=== PATIENT | male | born 1965 | race Caucasian/White ===

== ENCOUNTER → 2020-01-30 08:56 | Outpatient (BNVA) | payer SELFPAY | PROVIDERS: Visit Provider Internal Medicine | DX: Z11.59 Encounter for screening for other viral diseases (principal) | CPT/HCPCS: 87635 ==

== ENCOUNTER 2020-02-02 06:56 | Day surgery (SDC) | payer OTHER, SELFPAY ==
[2020-01-29 12:44] VITALS: BMI 27.8
[2020-02-02 07:11] VITALS: BP 125/88; PULSE 56; RESP 18; TEMP 36.4; O2SAT 98; BMI 27.8
--- NOTE | 2020-02-02 07:49 | ANES.PREANE2 ---
Pre-Anesthetic Assessment Pre-Anesthetic Assessment: Height/Weight: Height 1.88 m Weight 98.43 kg Temp Pulse Resp BP Pulse Ox 97.6 F 56 L 18 125/88 98 02/02/20 07:11 02/02/20 07:11 02/02/20 07:11 02/02/20 07:11 02/02/20 07:11 Preop Diagnosis: screening Proposed Procedure: Operation Date: 02/02/20 07:55 Proposed Procedures p Colonoscopy screening 34304 Z12.11(Not Applicable) - Jose Aquino MD Familial anesthetic complications: None Was Beta Jefferson taken within 24 hours: N/A Last intake: Intake Last Liquid Date 02/01/20 Last Liquid Time 23:30 Last Solid Date 01/31/20 Last Solid Time 12:00 Social: Social History: No alcohol and No tobacco Exam: Pre-Anes Outpt Exam: alert, oriented x 3, clear to auscultation bilaterally and regular rate & rhythm Airway: Cervical ROM: WNL MP: 3 Dentition: Full Musc/skel: Musc/skel: Lower Back Pain Anesthetic Plan: ASA status: 1 Anesthesia: MAC Risk of > 500 ml blood loss (7ml/kg in children): No Data Anesthesia Cardiac Studies: No Data to Display
--- NOTE | 2020-02-02 08:10 | P.HP_ITS ---
Same Day Surgery H&P Indication for Procedure/HPI DATE OF PROCEDURE: February 02, 2020 CHIEF COMPLAINT/INDICATIONFOR SURGICAL PROCEDURE: history of colon polyps PREOP DIAGNOSIS: screening PLANNED PROCEDRUE: Operation Date: 02/02/20 07:55 Proposed Procedures p Colonoscopy screening 10097 Z12.11(Not Applicable) - Jose Aquino MD Medications/Allergies* Home Medications Medication Instructions Recorded Confirmed Type No Known Home Medications 01/21/20 01/29/20 History Allergies/Adverse Reactions Allergy/AdvReac Type Severity Reaction Status Date / Time No Known Allergies Allergy Verified 02/02/20 07:09 Pertinent Exam Findings alert, oriented x 3 and regular rate & rhythm Recommendations Surgery/Procedure today Coding Level of Care Code Acute Cigarette Tester for Abida Douglas
[2020-02-02 08:50] VITALS: BP 152/83; PULSE 60; RESP 16; TEMP 36.1; O2SAT 91
[2020-02-02 09:11] VITALS: BP 169/105; PULSE 61; RESP 18; O2SAT 92
== END 2020-02-02 09:17 | disposition home or self-care (01) ==
PROVIDERS: PCP Nurse Practitioner Family; Visit Provider Surgery
PROC: 0DJD8ZZ Inspection of Lower Intestinal Tract, Via Natural or Artificial Opening Endoscopic (ICD-10-PCS; CPT 45378; principal; 2020-02-02 07:55)
DX: Z12.11 Encounter for screening for malignant neoplasm of colon (principal); D12.4 Benign neoplasm of descending colon; D12.5 Benign neoplasm of sigmoid colon; K64.8 Other hemorrhoids; Z86.010 Personal history of colon polyps
CPT/HCPCS: 12345; 45385; 88305; J2704; J3010

== ENCOUNTER 2024-01-24 08:41 | Outpatient (CLI) | payer OTHER, SELFPAY ==
--- NOTE | 2024-01-24 08:44 | CT_ITS ---
WS: [id number] LDCT LUNG CANCER SCREENING HISTORY: NICOTINE DEPENDENCE TECHNIQUE: Axial imaging performed from the apices to 1 cm below the costophrenic angles. Coronal and sagittal reformats are submitted with axial MIP series. All CT scans at [facility] use at least one of these dose optimization techniques: automated exposure control; mA and/or kV adjustment per patient size (includes targeted exams where dose is matched to clinical indication); or iterativ e reconstruction. DLP: 83.90 mGy.cm DIvol: Mean CTDIvol: 1.50 (mGy) COMPARISON: None available. Diagnostic quality: Satisfactory Lungs: Mild pulmonary hyperexpansion. Mild biapical pleural thickening. There are several perifissura l nodules which are typically benign. There are a few small scattered micronodules and a few calcifie d granulomata. No suspicious mass or nodule. No endobronchial lesions. Heart: Normal size heart with no pericardial effusion.. Other findings: No mediastinal or hilar adenopathy. Normal size pulmonary artery and aorta. Very mild nodularity of the LEFT adrenal gland. No mass. CT/CT lung screening [id number] IMPRESSION: LUNG-RADS: 2-Benign Appearance or Behavior FOLLOW UP: 12 Month: Continue annual screening with LDCT OTHER FINDINGS (S MODIFIER): None.
== END 2024-01-24 08:42 | disposition home or self-care (01) ==
LOC: RAD 08:42
PROVIDERS: PCP Family Medicine; Visit Provider Family Medicine
DX: Z12.2 Encounter for screening for malignant neoplasm of respiratory organs (principal); F17.210 Nicotine dependence, cigarettes, uncomplicated; R91.8 Other nonspecific abnormal finding of lung field; J84.10 Pulmonary fibrosis, unspecified
CPT/HCPCS: 71271